=== PATIENT | male | born 1965 | race Caucasian/White ===

== ENCOUNTER 2017-07-07 00:34 | Emergency (ER) | payer OTHER ==
[~2017-07-07] VITALS: Ht 175.3 cm; Wt 76.2 kg
[~2017-07-07 00:34] MED LIST: ALBU1AER9 INH; CITA20TA9 PO; CMBIN INH; DIVA500T3 PO; IBUP600T44 PO; MIRT15TA PO; PRAV40TA2 PO; PRS5 PO; TAMS0.4C38 PO
[2017-07-07 00:52] VITALS: BP 108/87; TEMP 36.8; O2SAT 99; Ht 175.3 cm; Wt 76.2 kg
[2017-07-07 00:56] VITALS: PULSE 111
[2017-07-07] MEDS ORDERED: ALBU18002 INH (00:56)
[2017-07-07] MEDS ORDERED: FLUO20CA35 PO (00:56)
[2017-07-07] MEDS ORDERED: SODIUM CHLORIDE 0.9% 500ML 500 ML IV STA (01:21)
[2017-07-07] MEDS ORDERED: ONDANSETRON INJ 2 MG/ML 2 ML VIAL IV STA (01:21)
--- NOTE | 2017-07-07 01:35 | EMERGENCY ROOM VISIT NOTE ---
History Report prepared by Junior: Greg Chao Under the Supervision of: Dr. Francie Quiñonez M.D. First contact with patient: 01:16 Chief Complaint: CHEST PAIN Stated Complaint: CHEST PAIN/SHORT OF BREATH Nursing Triage Summary: pt was being arrested, developed chest pain, nausea vomiting. pt states hes been having on/off chest pain x 2 weeks History of Present Illness The patient is a 51 year old male who presents to the Emergency Room with complaints of on and off chest pain for the past 2 weeks. The patient states that he was drinking alcohol tonight, though this did not make it worse, and he states that he drinks to get rid of the pain. He notes that the pain does not come while doing anything particular. He notes that the pain is sometimes worse with deep inspiration and exertion, and he gets short of breath with exertion. He denies any heart history, though he has a family history of heart disease and cancer. He notes that he smokes, and he states that he does not have diabetes. He notes that he used his inhaler tonight, and he has had this for a couple of years now. The patient states that he has never had a stress test done. He denies any recent long trips. The patient reports that he has been vomiting due to the pain. Source of History: patient Onset: 2 weeks Position: chest Timing: other (on and off) Modifying Factors (Worsening): exertion, other (deep inspiration) Associated Symptoms: + SOB, + vomiting Review of Systems See HPI for pertinent positives & negatives. A total of 10 systems reviewed and were otherwise negative. 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 (5) Microscopic hematuria (6) TOBACCO USE DISORDER Social History Smoking Status: Current Every Day Smoker Alcohol Use: none Drug Use: none Marital Status: Occupation Status: unemployed Current/Historical Medications Scheduled Fluoxetine (Prozac), 30 MG PO DAILY Scheduled PRN Albuterol Sulfate (Proair Respiclick), 2 PUFFS INH Q4H PRN for Shortness of Breath Allergies Coded Allergies: No Known Allergies (Unverified , 07/07/17) Physical Exam Vital Signs Date Time Temp Pulse Resp B/P (MAP) Pulse Ox O2 Delivery O2 Flow Rate FiO2 07/07/17 00:56 111 07/07/17 00:52 99 Room Air 07/07/17 00:52 36.8 115 22 108/87 99 Room Air Physical Exam Vital signs reviewed. General: Well-appearing male, retching into a bag. No emesis. Smells of alcohol. HEENT: No scleral icterus, PERRLA, neck supple. Atraumatic. Cardiovascular: Regular rate and rhythm, no extra sounds. Pulmonary: Clear to auscultation bilaterally, normal work of breathing. Abdomen: Soft, nontender, nondistended, positive bowel sounds. Musculoskeletal: Atraumatic, no peripheral edema. Neurologic: Patient awake alert and oriented x 3, full strength in all 4 extremities. Cranial nerves 2 through 12 grossly intact. Skin: Warm, dry, no rash Medical Decision & Procedures ER Provider Diagnostic Interpretation: X-ray results as stated below per interpretation by me: Chest X-ray No focal lung consolidation. No failure. Laboratory Results 07/07/17 00:56 Red Blood Count 4.91, Mean Corpuscular Volume 87.4, Mean Corpuscular Hemoglobin 31.2, Mean Corpuscular Hemoglobin Concent 35.7, Mean Platelet Volume 9.4, Neutrophils (%) (Auto) 52.7, Lymphocytes (%) (Auto) 37.1, Monocytes (%) (Auto) 7.4, Eosinophils (%) (Auto) 1.8, Basophils (%) (Auto) 0.5, Neutrophils # (Auto) 6.95, Lymphocytes # (Auto) 4.90, Monocytes # (Auto) 0.98, Eosinophils # (Auto) 0.24, Basophils # (Auto) 0.07 07/07/17 00:56 Test 07/07/17 00:56 07/07/17 01:26 White Blood Count 13.20 K/uL (4.8-10.8) Red Blood Count 4.91 M/uL (4.7-6.1) Hemoglobin 15.3 g/dL (14.0-18.0) Hematocrit 42.9 % (42-52) Mean Corpuscular Volume 87.4 fL (80-100) Mean Corpuscular Hemoglobin 31.2 pg (25-34) Mean Corpuscular Hemoglobin Concent 35.7 g/dl (32-36) Platelet Count 374 K/uL (130-400) Mean Platelet Volume 9.4 fL (7.4-10.4) Neutrophils (%) (Auto) 52.7 % Lymphocytes (%) (Auto) 37.1 % Monocytes (%) (Auto) 7.4 % Eosinophils (%) (Auto) 1.8 % Basophils (%) (Auto) 0.5 % Neutrophils # (Auto) 6.95 K/uL (1.4-6.5) Lymphocytes # (Auto) 4.90 K/uL (1.2-3.4) Monocytes # (Auto) 0.98 K/uL (0.11-0.59) Eosinophils # (Auto) 0.24 K/uL (0-0.5) Basophils # (Auto) 0.07 K/uL (0-0.2) RDW Standard Deviation 42.8 fL (36.4-46.3) RDW Coefficient of Variation 13.5 % (11.5-14.5) Immature Granulocyte % (Auto) 0.5 % Immature Granulocyte # (Auto) 0.06 K/uL (0.00-0.02) Anion Gap 12.0 mmol/L (3-11) Est Creatinine Clear Calc Drug Dose 102.8 ml/min Estimated GFR () 117.2 Estimated GFR (Non- 101.1 BUN/Creatinine Ratio 19.3 (10-20) Calcium Level 9.1 mg/dl (8.5-10.1) Total Bilirubin 0.2 mg/dl (0.2-1) Direct Bilirubin mg/dl (0-0.2) Aspartate Amino Transf (AST/SGOT) 15 U/L (15-37) Alanine Aminotransferase (ALT/SGPT) 27 U/L (12-78) Alkaline Phosphatase 76 U/L (45-117) Total Creatine Kinase 188 U/L (39-308) Creatine Kinase MB 2.1 ng/ml (0.5-3.6) Creatine Kinase MB Ratio 1.1 (0-3.0) Total Protein 7.5 gm/dl (6.4-8.2) Albumin 3.7 gm/dl (3.4-5.0) Lipase 238 U/L (73-393) Chemistry Specimen Hemolysis Ethyl Alcohol mg/dL 132.4 mg/dl (0-3) Bedside Troponin I < 0.030 ng/ml (0-0.045) Laboratory results per my review. Medications Administered Medications (Trade) Dose Ordered Sig/Osiel Route Start Time Stop Time Status Last Admin Dose Admin Ondansetron HCl (Zofran Inj) 4 mg NOW STAT IV 07/07/17 01:21 07/07/17 01:23 DC 07/07/17 01:36 4 MG Sodium Chloride 500 ml @ 999 mls/hr Q31M STAT IV 07/07/17 01:21 07/07/17 01:51 DC 07/07/17 01:36 999 MLS/HR ECG Indication: chest pain Rate (beats per minute): 114 Rhythm: sinus tachycardia Findings: T-wave inversion (lateral), no ectopy, other (Short ME interval. Poor quality basleine for interpretation. No ST elevation) Change: Patient's electrocardiogram interpreted by me. ED Course 0116: Past medical records reviewed. The patient was evaluated in room A6. A complete history and physical examination was performed. 0121: Sodium Chloride 500 ml @ 999 mls/hr IV, Zofran 4mg IV 240: The patient insists on going home against medical advice, so he will be discharged home. Medical Decision Differential diagnosis Acute coronary syndrome, pulmonary embolus, aortic dissection, musculoskeletal pain, pneumonia, pleural effusion, pneumothorax This patient was evaluated and appeared to be in no significant distress. IV access was obtained and laboratory work was drawn. The patient was placed on the cafeteria monitor with normal sinus rhythm. EKG reveals a sinus tachycardia with diffuse T-wave inversions with no ST elevation. Chest x-ray is clear. Patient was hydrated with normal saline solution given IV Zofran for his nausea. He is found to be intoxicated. Patient had significant resolution of his symptoms. I do not suspect an acute cardiac etiology. The patient became upset and wanted to leave as soon as possible. He apparently has several warrants out for his arrest and was pulled over for driving under the influence this evening. He attempted to elope from the emergency department however the police apprehended him. Medication Reconcilliation Current Medication List: was personally reviewed by me Blood Pressure Screening Patient's blood pressure: Normal blood pressure Impression Primary Impression: Substernal chest pain Additional Impression: Alcohol intoxication Scribe Attestation The scribe's documentation has been prepared under my direction and personally reviewed by me in its entirety. I confirm that the note above accurately reflects all work, treatment, procedures, and medical decision making performed by me. Departure Information Dispostion Against Medical Advice Referrals No Doctor, Assigned (PCP) Forms Call Back Authorization, HOME CARE DOCUMENTATION FORM, IMPORTANT VISIT INFORMATION Patient Instructions My [facility] Additional Instructions Diagnosis: Chest pain, alcohol intoxication Please follow-up with your physician as soon as possible. You have left the emergency department AGAINST MEDICAL ADVICE. Return to the emergency department for worsening of symptoms or any medical concerns. Problem Qualifiers
[2017-07-07 01:42] LABS: BASO % 0.5 %; BASO ABS # 0.07 K/uL (0-0.2); EOS % 1.8 %; EOS ABS # 0.24 K/uL (0-0.5); HEMATOCRIT 42.9 % (42-52); HEMOGLOBIN 15.3 g/dL (14.0-18.0); IG# 0.06 K/uL (0.00-0.02); LYMPH % 37.1 %; MEAN CELL VOLUME 87.4 fL (80-100); MEAN CORPUSCULAR HEMOGLOBIN 31.2 pg (25-34); MEAN CORPUSCULAR HGB CONC 35.7 g/dl (32-36); MEAN PLATELET VOLUME 9.4 fL (7.4-10.4); MONO % 7.4 %; MONO ABS # 0.98 K/uL (0.11-0.59); NEUT % 52.7 %; NEUT ABS # 6.95 K/uL (1.4-6.5); PLATELET COUNT 374 K/uL (130-400); RED CELL DISTRIBUTION WIDTH CV 13.5 % (11.5-14.5); RED CELL DISTRIBUTION WIDTH SD 42.8 fL (36.4-46.3)
[2017-07-07 02:05] LABS: ALBUMIN 3.7 gm/dl (3.4-5.0); ALT/SGPT 27 U/L (12-78); AST/SGOT 15 U/L (15-37); BLOOD UREA NITROGEN 17 mg/dl (7-18); CALCIUM 9.1 mg/dl (8.5-10.1); CARBON DIOXIDE 17 mmol/L (21-32); CREATININE 0.86 mg/dl (0.60-1.40); GLUCOSE 146 mg/dl (70-99); LIPASE 238 U/L (73-393); POTASSIUM 3.6 mmol/L (3.5-5.1); SODIUM 139 mmol/L (136-145)
[2017-07-07 02:08] LABS: ALKALINE PHOSPHATASE 76 U/L (45-117); CKMB 2.1 ng/ml (0.5-3.6); TOTAL PROTEIN 7.5 gm/dl (6.4-8.2)
--- NOTE | 2017-07-07 06:48 | DIAGNOSTIC IMAGING REPORT ---
CHEST ONE VIEW PORTABLE CLINICAL HISTORY: Atypical chest pain COMPARISON STUDY: 08/13/2012 FINDINGS: The cardiac and mediastinal contours are normal. There is no evidence of focal pulmonary consolidation. There is no evidence of failure. No pleural effusions are visualized.[ IMPRESSION: No active disease in the chest. Electronically signed by: Kyree Lopez M.D. 07/07/2017 6:47 AM Dictated Date/Time: 07/07/2017 6:47 AM
== END 2017-07-07 03:27 | disposition left against medical advice (07) ==
LOC: EDBD 00:34 → C.EDA 00:36
DX: R07.2 Precordial pain (principal); F10.920 Alcohol use, unspecified with intoxication, uncomplicated; Z80.9 Family history of malignant neoplasm, unspecified; F17.210 Nicotine dependence, cigarettes, uncomplicated; J45.909 Unspecified asthma, uncomplicated; F32.9 Major depressive disorder, single episode, unspecified; E78.5 Hyperlipidemia, unspecified; N40.0 Benign prostatic hyperplasia without lower urinary tract symptoms; Z79.899 Other long term (current) drug therapy

== ENCOUNTER 2023-02-07 14:08 | Observation (INO) ==
[2023-02-07 14:53] LABS: Partial Thromboplastin Ratio 0.9; Partial Thromboplastin Time 25.5 Seconds (21.0-31.0); Prothrombin Time 10.5 Seconds (9.0-12.0)
--- NOTE | 2023-02-07 15:02 | Emergency Department Note ---
Impression & Plan Arm weakness ADMIT ED Provider Note HPI: The patient is a 57-year-old male who presents the emergency department with a chief complaint of left arm numbness and weakness that has been occurring intermittently for about the past 2 weeks. Patient states that at times he is getting some numbness and weakness in his left upper extremity. Patient states he had a similar episode to this today at about 1 PM, he states he was walking up the stairs and began to feel some numbness in his left arm and then had some difficulty moving his left arm to the point where he had to use his right arm to lift it. Patient states this lasted about 1 minute and then spontaneously r esolved. On arrival here to the ED the patient states his symptoms are improved, he still does have some mild tingling however he does not have any motor deficits. Patient states he has had a constant "aching" throughout his entire left arm for the past 2 weeks as well. On arrival here to the ED the patient is hypertensive at 162/93, he is otherwise hemodynamically stable and in no acute distress. ROS: - Per HPI Differential Diagnosis: Transient ischemic attack, acute ischemic stroke, degenerative changes of the cervical spine with radiculopathy, muscle spasms, acute coronary syndrome, amongst other potential pathologies. *Outpatient medications and allergy history reviewed. *Pertinent external medical records reviewed. PE: General: Alert HEENT: Normocephalic, trachea midline Eyes: Extraocular eye movement is intact, no scleral erythema Pulmonary: Clear to auscultation bilaterally, no wheezing Cardio: Regular rate and rhythm GI: Abdomen is soft to palpation : No suprapubic tenderness MSK: No evidence of trauma or malformation of the extremities, no edema Skin: No evidence of rash Neuro: Alert, no focal deficits, there is no drift of the upper extremities or lower extremities with testing against gravity, no ataxia on [id number] testing bilaterally, symmetrical facial movements are appreciated Psychiatric: Cooperative monitor technician: (As interpreted by myself): - An order was placed for continuous cardiac monitoring - Patient was noted to be in sinus rhythm with a rate of 70 EKG: (As interpreted by myself): Rate: 86 Rhythm: Normal sinus rhythm Intervals: Within normal limits ST changes: No ST elevation Time: 1424 NIH STROKE SCALE: 1A: Level of consciousness Alert; keenly responsive 0 1B: Ask month and age Both questions right 0 1C: 'Blink eyes' & 'squeeze hands' Performs both tasks 0 2: Horizontal extraocular movements Normal 0 3: Visual rae No visual loss 0 4: Facial palsy Normal symmetry 0 5A: Left arm motor drift No drift for 10 seconds 0 5B: Right arm motor drift No drift for 10 seconds 0 6A: Left leg motor drift No drift for 5 seconds 0 6B: Right leg motor drift No drift for 5 seconds 0 7: Limb Ataxia No ataxia 0 8: Sensation Normal; no sensory loss 0 9: Language/aphasia Normal; no aphasia 0 10: Dysarthria Normal 0 11: Extinction/inattention No abnormality 0 TOTAL NIH SCORE = 0 Interventions provided in ED: -Aspirin, IV fluid bolus Medical Decision Making: Shortly after the patient arrived IV was established lab work ordered, patient was maintained on quality assurance monitor. Patient is not considered a candidate for tPA therapy despite his left arm weakness as his symptoms are completely resolved and his weakness was transient. NIH score obtained shortly after arrival is 0. Lab work shows a leukocytosis of 17.7 which appears chronic in comparison to patient's recent lab work. Hemoglobin is stable at 15.7, platelet count is slightly high at 409, CMP does not show any critical findings, no evidence of any acute kidney injury, troponin is negative, EKG reviewed by myself shows evidence of sinus rhythm without any acute ischemic changes or evidence of arrhythmia. CT imaging of the head without contrast as well as CT angiography of the head and neck does not show any evidence of large vessel occlusion, there is evidence of atherosclerotic disease including occlusion of the left vertebral artery. On reassessment the patient remains well-appearing and is resting comfortably in bed. He was given an aspirin here in the ED. He does have risk factors for stroke as well as known atherosclerotic disease as visualized on CT imaging. I feel he should be admitted to the hospital for TIA work-up, Including MRI imaging of the brain. I discussed this with the patient and he is in agreement, case was then discussed with the on-call midlevel provider [facility], and the patient was admitted to the hospitalist service for further management. Consultants: Hospitalist service, Dr. Morales Disposition discussion held by myself with: Patient Diagnosis: 1. Left upper extremity weakness, transient 2. Left upper extremity paresthesias, transient 3. Leukocytosis, chronic 4. History of tobacco use Disposition: Admission Louie Coleman DO Emergency Medicine Past Med/Surg History Medical History (Updated 02/07/23 @ 17:00 by Louie Coleman DO) Abnormal CT scan, chest Asthma Chronic coughing GERD (gastroesophageal reflux disease) Nephrolithiasis Tobacco abuse Surgical History History of hernia surgery Family History (Updated 09/09/21 @ 13:48 by NIKOLE Montejo) Other Allergies Asthma Cancer Diabetes FHx: cancer FHx: heart disease Heart disease Denies family history of Lung disease Social History (Updated 09/09/21 @ 13:47 by NIKOLE Montejo) Smoking Status: Never smoker Tobacco Type: Cigarettes and Smokeless Tobacco (Dip or Chew) Age Started Using Tobacco: 13; packs per day: 1; Hx Alcohol Use: No Hx Substance Use: No Preferred Language: Irish Visual Impairment: No Limitations Hearing Ability: Normal current occupational status: employed Feels Safe at Home: Yes Allergies Allergies Allergy/AdvReac Type Severity Reaction Status Date / Time Mosquito Bite Allergy Mild Rash Uncoded 02/07/23 16:56 around site of bite Home Meds Home Medications Medication Instructions Recorded Confirmed albuterol sulfate 90 mcg/actuation 2 inha inhalation QID PRN 10/22/20 02/07/23 aerosol inhaler Wheezing/asthma acetaminophen 500 mg tablet 1,000 mg PO Q6H PRN Pain 03/03/21 02/07/23 (Tylenol Extra Strength) diphenhydramine HCl 25 mg tablet 75 mg PO AMHS 03/03/21 02/07/23 (Benadryl Allergy) calcium carbonate 200 mg calcium 400 mg PO BID PRN Acid Reflux 02/07/23 02/07/23 (500 mg) chewable tablet (Tums) diphenhydramine HCl 25 mg tablet 50 mg PO .Q AFTERNOON 02/07/23 02/07/23 (Benadryl Allergy) umeclidinium 62.5 mcg-vilanterol 1 ea inhalation QAM 02/07/23 02/07/23 25 mcg/actuation powdr for inhalation (Anoro Ellipta) Results & Data (ED) Vital Signs Vital Signs - 24 hr 02/07/23 14:12 02/07/23 15:18 02/07/23 15:18 Temperature 37.1 C Temperature Source Temporal Artery Scan Pulse Rate 92 H Pulse Rate [Apical] 80 Pulse Rhythm [Apical] Regular Respiratory Rate 18 18 Respiratory Effort / Characteristics Non-Labored Non-Labored Spontaneous Respiratory Depth Normal Normal Respiratory Pattern Regular Blood Pressure 162/93 H Blood Pressure [Right Arm] 138/95 Blood Pressure Mean 116 Blood Pressure Mean [Right Arm] 109 Blood Pressure Position [Right Arm] Lying Pulse Oximetry 97 96 96 Oxygen Delivery Method Room Air Room Air Room Air Sepsis Recent Fever Within 48 Hours No Sepsis New/Unexplained Change in Mental Status No Sepsis Action Taken by Nursing No Action Required 02/07/23 15:19 Temperature Temperature Source Pulse Rate 77 Pulse Rate [Apical] Pulse Rhythm [Apical] Respiratory Rate Respiratory Effort / Characteristics Respiratory Depth Respiratory Pattern Blood Pressure Blood Pressure [Right Arm] Blood Pressure Mean Blood Pressure Mean [Right Arm] Blood Pressure Position [Right Arm] Pulse Oximetry Oxygen Delivery Method Sepsis Recent Fever Within 48 Hours Sepsis New/Unexplained Change in Mental Status Sepsis Action Taken by Nursing Laboratory Data 02/07/23 14:20 02/07/23 14:20 Lab Results 02/07/23 02/07/23 02/07/23 Range/Units 14:20 14:20 14:20 WBC 17.76 H (4.8-10.8) K/ul RBC 5.14 (4.70-6.10) M/uL Hgb 15.7 (14.0-18.0) g/dl Hct 44.2 (42.0-52.0) % MCV 86.0 (80.0-100.0) fL MCH 30.5 (25.0-34.0) pg MCHC 35.5 (32.0-36.0) g/dL RDW Std Deviation 41.0 (36.4-46.3) fL RDW Coeff of Yazmin 13.1 (11.5-14.5) % Plt Count 409 H (130-400) K/uL MPV 8.9 L (9.4-12.4) fL PT 10.5 (9.0-12.0) Seconds INR 1.0 (0.9-1.1) APTT 25.5 (21.0-31.0) Seconds PTT Ratio 0.9 Sodium 137 (136-145) mmol/L Potassium 3.7 (3.5-5.1) mmol/L Chloride 105 (98-107) mmol/L Carbon Dioxide 23 (21-32) mmol/L Anion Gap 9 (3-11) BUN 14 (6-23) mg/dl Creatinine 1.17 (0.6-1.4) mg/dl Est Cr Clr Drug Dosing 76.9 ml/min Est GFR ( Amer) 80.3 ml/min Est GFR (Non-Af Amer) 69.3 ml/min BUN/Creatinine Ratio 12.0 (10-20) Glucose 99 (70-99(Fasting)) mg/dl POC Glucose (70-99) mg/dl Calcium 10.6 H (8.6-10.3) mg/dl Magnesium 2.0 (1.7-2.4) mg/dl Total Bilirubin 0.7 (0.2-1.0) mg/dl AST 15 (13-39) U/L ALT 22 (7-52) U/L Alkaline Phosphatase 70 (34-104) U/L Troponin I High Sens (0-20) pg/ml Total Protein 7.5 (6.0-8.3) gm/dl Albumin 4.7 (3.4-5.0) gm/dl Globulin 2.8 (2.5-4.0) gm/dl Albumin/Globulin Ratio 1.7 (0.9-2) 02/07/23 02/07/23 Range/Units 15:13 16:03 WBC (4.8-10.8) K/ul RBC (4.70-6.10) M/uL Hgb (14.0-18.0) g/dl Hct (42.0-52.0) % MCV (80.0-100.0) fL MCH (25.0-34.0) pg MCHC (32.0-36.0) g/dL RDW Std Deviation (36.4-46.3) fL RDW Coeff of Yazmin (11.5-14.5) % Plt Count (130-400) K/uL MPV (9.4-12.4) fL PT (9.0-12.0) Seconds INR (0.9-1.1) APTT (21.0-31.0) Seconds PTT Ratio Sodium (136-145) mmol/L Potassium (3.5-5.1) mmol/L Chloride (98-107) mmol/L Carbon Dioxide (21-32) mmol/L Anion Gap (3-11) BUN (6-23) mg/dl Creatinine (0.6-1.4) mg/dl Est Cr Clr Drug Dosing ml/min Est GFR ( Amer) ml/min Est GFR (Non-Af Amer) ml/min BUN/Creatinine Ratio (10-20) Glucose (70-99(Fasting)) mg/dl POC Glucose 92 (70-99) mg/dl Calcium (8.6-10.3) mg/dl Magnesium (1.7-2.4) mg/dl Total Bilirubin (0.2-1.0) mg/dl AST (13-39) U/L ALT (7-52) U/L Alkaline Phosphatase (34-104) U/L Troponin I High Sens 6.4 (0-20) pg/ml Total Protein (6.0-8.3) gm/dl Albumin (3.4-5.0) gm/dl Globulin (2.5-4.0) gm/dl Albumin/Globulin Ratio (0.9-2) Administered Medications Discontinued Medications Aspirin (Aspirin Chew 324 Mg) 324 mg PO NOW STA Stop: 02/07/23 16:23 Last Admin: 02/07/23 16:31 Dose: 324 mg Documented By: DYLON Sodium Chloride (Nss 1000ml) 500 mls @ 999 mls/hr IV .Q31M ONE Stop: 02/07/23 16:52 Last Admin: 02/07/23 16:33 Dose: 999 mls/hr Documented By: DYLON Ioversol (Ioversol 350 Mg 125ml Prefilled Syringe) 117 ml IV ONCE ONE Stop: 02/07/23 15:45 Last Admin: 02/07/23 15:44 Dose: 117 ml Documented By: ARLETH Imaging Data Radiologist's Impression: Chest X-Ray 02/07/23 14:17 XR chest 1V not portable HISTORY: Stroke symptoms. COMPARISON: Chest 10/22/2020. FINDINGS: The lungs are clear. Cardiac silhouette is normal in size. No pleural effusions. No pneumothorax. IMPRESSION: No acute process. ACT 112: Negative or not required by law. Electronically signed by: Konrad Hernandez M.D. 02/07/2023 3:11 PM Head CTA 02/07/23 14:57 CT angio head wo/w, CT angio neck with con CLINICAL HISTORY: L arm weakness TECHNIQUE: Contiguous axial CT images of the head were acquired from the base of the skull to the vertex without intravenous contrast administration. CT angiography of the head and neck was performed following intravenous administration of iodinated contrast. Coronal and sagittal MIPS were obtained from the axial data set and were submitted for review. Automated dose lowering techniques and/or adjustment according to patient size were utilized for this examination. All measurements were calculated based on NASCET criteria. CT DOSE: 1005.31 mGy.cm Comparison: Comparison is made to CT head 01/02/2019 FINDINGS: CT head: There is no acute intracranial hemorrhage or evidence of acute territorial infarction. No shift of the midline structures, mass effect, or extra-axial abnormalities are shown. Small thyroid nodules are seen which do not require follow-up by ACR criteria. CTA Neck: A 3 vessel aortic arch is shown. There is no significant atherosclerotic plaque in the aortic arch or the origins of the innominate, left common carotid, and left subclavian arteries. There is mild calcified atherosclerotic plaque at the bifurcation of the bilateral common carotid arteries without hemodynamically significant flow stenosis. There is no dissection present. 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 The right vertebral artery is dominant. CTA Head: The anterior and posterior cerebral circulations are patent. origin of the left posterior cerebral artery is seen. IMPRESSION: 1. No acute intracranial hemorrhage, evidence of acute territorial infarction, or other acute intracranial disease process. 2. 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 Atherosclerotic disease is in the bilateral carotid bulbs with nonhemodynamically significant stenosis. 3. No occlusion, hemodynamically significant stenosis, aneurysm, dissection, or arteriovenous malformation in the major intracranial arteries. Assessment of stenosis of the internal carotid arteries is based on NASCET criteria. ACT 112: Negative or not required by law. Electronically signed by: Williams Marin M.D. 02/07/2023 4:16 PM Neck CTA 02/07/23 14:58 CT angio head wo/w, CT angio neck with con CLINICAL HISTORY: L arm weakness TECHNIQUE: Contiguous axial CT images of the head were acquired from the base of the skull to the vertex without intravenous contrast administration. CT angiography of the head and neck was performed following intravenous administration of iodinated contrast. Coronal and sagittal MIPS were obtained from the axial data set and were submitted for review. Automated dose lowering techniques and/or adjustment according to patient size were utilized for this examination. All measurements were calculated based on NASCET criteria. CT DOSE: 1005.31 mGy.cm Comparison: Comparison is made to CT head 01/02/2019 FINDINGS: CT head: There is no acute intracranial hemorrhage or evidence of acute territorial infarction. No shift of the midline structures, mass effect, or extra-axial abnormalities are shown. Small thyroid nodules are seen which do not require follow-up by ACR criteria. CTA Neck: A 3 vessel aortic arch is shown. There is no significant ather osclerotic plaque in the aortic arch or the origins of the innominate, left common carotid, and left subclavian arteries. There is mild calcified atherosclerotic plaque at the bifurcation of the bilateral common carotid arteries without hemodynamically significant flow stenosis. There is no dissect ion present. 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 The right vertebral artery is dominant. CTA Head: The anterior and posterior cerebral circulations are patent. origin of the left posterior cerebral artery is seen. IMPRESSION: 1. No acute intracranial hemorrhage, evidence of acute territorial infarction, or other acute intracranial disease process. 2. 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 Atherosclerotic disease is in the bilateral carotid bulbs with nonhemodynamically significant stenosis. 3. No occlusion, hemodynamically significant stenosis, aneurysm, dissection, or arteriovenous malformation in the major intracranial arteries. Assessment of stenosis of the internal carotid arteries is based on NASCET criteria. ACT 112: Negative or not required by law. Electronically signed by: Williams Marin M.D. 02/07/2023 4:16 PM Discharge Plan Visit Data Chief Complaint: Neuro Symptoms/Deficit Stated Complaint: DOC REF,NUMB L ARM, ED Provider: Louie Coleman Discharge Problem: Arm weakness Forms Stand Alone Forms: My [facility] Prescriptions Prescriptions: No Action albuterol sulfate 90 mcg/actuation HFA aerosol inhaler 2 inha INH QID PRN (Reason: Wheezing/asthma) diphenhydramine HCl [Benadryl Allergy] 25 mg Tablet 50 mg PO .Q AFTERNOON calcium carbonate [Tums] 200 mg calcium (500 mg) Tablet,Chewable 400 mg PO BID PRN (Reason: Acid Reflux) Anoro Ellipta 62.5-25 mcg/actuation blister with device 1 ea INHALATION QAM acetaminophen [Tylenol Extra Strength] 500 mg Tablet 1,000 mg PO Q6H PRN (Reason: Pain) diphenhydramine HCl [Benadryl Allergy] 25 mg Tablet 75 mg PO AMHS Referrals Referrals: PCP,NO [Physician] -
[2023-02-07 15:08] LABS: Albumin Globulin Ratio 1.7 (0.9-2); Albumin Level 4.7 gm/dl (3.4-5.0); Bilirubin,Total 0.7 mg/dl (0.2-1.0); Calcium 10.6 mg/dl (8.6-10.3); Creatinine Clr Calc Pharmacy 76.9 ml/min; Est GFR (African American) 80.3 ml/min; Est GFR (Non-African American) 69.3 ml/min; Globulin 2.8 gm/dl (2.5-4.0); Potassium 3.7 mmol/L (3.5-5.1); Total Protein 7.5 gm/dl (6.0-8.3)
[2023-02-07 15:09] LABS: Hematocrit (blood only) 44.2 % (42.0-52.0); Hemoglobin 15.7 g/dl (14.0-18.0); Mean Corpuscular Hemoglobin 30.5 pg (25.0-34.0); Mean Corpuscular Hgb Conc 35.5 g/dL (32.0-36.0); Mean Platelet Volume 8.9 fL (9.4-12.4); Platelet Count 409 K/uL (130-400); RDW Coefficient of Variation 13.1 % (11.5-14.5); Red Blood Count 5.14 M/uL (4.70-6.10); White Blood Count 17.76 K/ul (4.8-10.8)
--- NOTE | 2023-02-07 15:13 | XRay Report ---
XR chest 1V not portable HISTORY: Stroke symptoms. COMPARISON: Chest 10/22/2020. FINDINGS: The lungs are clear. Cardiac silhouette is normal in size. No pleural effusions. No pneumot horax. IMPRESSION: No acute process. ACT 112: Negative or not required by law. Electronically signed by: Konrad Hernandez M.D. 02/07/2023 3:11 PM
[2023-02-07] MEDS ORDERED: IOVERSOL 350 MG 125mL Prefilled Syringe IV ONE (15:44)
--- NOTE | 2023-02-07 16:18 | CT Scan Report ---
CT angio head wo/w, CT angio neck with con CLINICAL HISTORY: L arm weakness TECHNIQUE: Contiguous axial CT images of the head were acquired from the base of the skull to the aksah ami without intravenous contrast administration. CT angiography of the head and neck was performed f ollowing intravenous administration of iodinated contrast. Coronal and sagittal MIPS were obtained fr om the axial data set and were submitted for review. Automated dose lowering techniques and/or adjus tment according to patient size were utilized for this examination. All measurements were calculated based on NASCET criteria. CT DOSE: 1005.31 mGy.cm Comparison: Comparison is made to CT head 01/02/2019 FINDINGS: CT head: There is no acute intracranial hemorrhage or evidence of acute territorial infarction. No sh ift of the midline structures, mass effect, or extra-axial abnormalities are shown. Small thyroid nodules are seen which do not require follow-up by ACR criteria. CTA Neck: A 3 vessel aortic arch is shown. There is no significant atherosclerotic plaque in the aor tic arch or the origins of the innominate, left common carotid, and left subclavian arteries. There is mild calcified atherosclerotic plaque at the bifurcation of the bilateral common carotid arteries without hemodynamically significant flow stenosis. There is no dissection present. Multiple foci of t otal occlusion of the left vertebral artery are seen most prominently near its origin. The right vert ebral artery is dominant. CTA Head: The anterior and posterior cerebral circulations are patent. origin of the left post erior cerebral artery is seen. IMPRESSION: 1. No acute intracranial hemorrhage, evidence of acute territorial infarction, or other acute intrac ranial disease process. 2. 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 Atherosclerotic disease is i n the bilateral carotid bulbs with nonhemodynamically significant stenosis. 3. No occlusion, hemodynamically significant stenosis, aneurysm, dissection, or arteriovenous malfor mation in the major intracranial arteries. Assessment of stenosis of the internal carotid arteries is based on NASCET criteria. ACT 112: Negative or not required by law. Electronically signed by: Williams Marin M.D. 02/07/2023 4:16 PM
[2023-02-07] MEDS ORDERED: ASPIRIN CHEW 324 MG PO STA (16:22)
[2023-02-07] MEDS ORDERED: SODIUM CHLORIDE 0.9% 500 ML IV ONE (16:22)
--- NOTE | 2023-02-07 16:59 | History & Physical Report ---
Date of Service February 07, 2023 Assessment & Plan (1) Arm weakness: Plan: This is a 57 y/o male with a history of asthma/COPD, chronic back pain with sciatica, dyslipidemia, and tobacco use who presented to the ED today with two weeks of intermittent numbness and tingling in the left arm and an episode of weakness in the arm today.These episodes of symptoms have been progressing in frequency and today in severity. 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 Continues to have intermittent numbness in the LUE since being in the ED but no further weakness. Pt with multiple risk factors for CVA so referred for admission. Concern that these LUE symptoms are TIA. - Observe in PCU with neuro checks, daily stroke scale - start ASA, increase statin - Check MRI brain - ECHO for evaluation - Consult neurology for additional recommendations - If work-up listed negative, consider evaluation for cervical radiculopathy, potentially as outpatient - Lipid panel and A1c in the AM - Encouraged to stop smoking completely (2) Leukocytosis: Plan: Ongoing issue - associated mild thrombocytosis. Pt was referred to hem/onc for additional evaluation outpatient but reports that he was unable to make appointment because of transportation issues. Will check peripheral smear. Consider inpt heme/onc eval vs. outpatient referral depending on results. (3) Tobacco abuse: (4) Dyslipidemia: (5) Asthma: Plan: Continue inhalers Plan Continue other home medications as appropriate. Pt seen and reviewed with collaborating physician, Dr. Morales. Plan of care discussed and as outlined above. Code Status: Full code DVT Prophylaxis: Lovenox Gilmar Martinez PA-C History of Present Illness Chief Complaint: intermittent left arm numbness and tingling x 2 weeks Primary Care Provider: Lyric Mcarthur PA-C This is a 57 y/o male with a history of asthma/COPD, chronic back pain with sciatica, dyslipidemia, and tobacco use who presented to the ED today with two weeks of intermittent numbness and tingling in the left arm and an episode of weakness in the arm today. Pt reports that two weeks ago, he started to have episodes during which his entire left arm would go numb. These last no more than a minute then resolve without specific intervention. They have been gradually increasing in frequency but not lasting longer. This afternoon, he started with a similar sensation but this time his entire left arm went weak and he was unable to move it reporting that he had to lift it with his other arm. Again, this lasted about a minute before improving without specific intervention. He denies prior similar symptoms in his UEs before two weeks ago. No inciting event or trauma. Pt is right-hand dominant. He works for a [employer] so is frequently lifting and using his arms. He does have a history of chronic back pain with sciatica, which is what he initially attributed his symptoms to. He is no longer taking the diclofenac and gabapenti n previously prescribed to him as he didn't think they helped much. He has also noted new headaches almost daily for the last two weeks, which he attributed to stress. He had an episode of dizziness with floaters in his vision about ten days ago when he was at work that lasted a few minutes before resolving. He notes chronic issues with shortness of breath related to asthma/COPD - breathing is always worse during allergy season and when the weather is hot so he has been using his albuterol inhaler with relief. He has also noted occasional episodes of left chest pain that last a couple of minutes, did have this earlier today as well. Allergies Allergy/AdvReac Type Severity Reaction Status Date / Time Mosquito Bite Allergy Mild Rash Uncoded 02/07/23 16:56 around site of bite Home Medications Medication Instructions Recorded Confirmed Type albuterol sulfate 90 mcg/actuation 2 inha inhalation QID PRN 10/22/20 02/07/23 History aerosol inhaler Wheezing/asthma atorvastatin 20 mg tablet 20 mg PO DAILY 02/07/23 02/07/23 History diphenhydramine HCl 25 mg tablet 25 mg PO Q8H PRN Allergy Symptoms 02/07/23 02/07/23 History (Benadryl Allergy) umeclidinium 62.5 mcg-vilanterol 1 ea inhalation QAM 02/07/23 02/07/23 History 25 mcg/actuation powdr for inhalation (Anoro Ellipta) Past Med/Surg History Medical History (Updated 02/07/23 @ 19:19 by Sandy Martinez PA-C) Abnormal CT scan, chest Asthma Chronic coughing Dyslipidemia GERD (gastroesophageal reflux disease) Nephrolithiasis Sciatica Seasonal allergies Tobacco abuse Surgical History History of hernia surgery Family History (Updated 09/09/21 @ 13:48 by NIKOLE Montejo) Other Allergies Asthma Cancer Diabetes FHx: cancer FHx: heart disease Heart disease Denies family history of Lung disease Social History (Updated 02/07/23 @ 18:05 by Sandy Martinez PA-C) Smoking Status: Current every day smoker Tobacco Type: Cigarettes and Smokeless Tobacco (Dip or Chew) Age Started Using Tobacco: 13; packs per day: 1; Cigarettes Per Day: 8-10 cig/day (Previously smoked 1-2 pks/day); Hx Alcohol Use: No Hx Substance Use: No Preferred Language: Monegasque Visual Impairment: No Limitations Hearing Ability: Normal current occupational status: employed Feels Safe at Home: Yes Review of Systems Review of Systems: All systems reviewed & are unremarkable except as noted in HPI & below Constitutional: + sweats (ongoing night sweats x 2-3 years); no fever, no anorexia and no weight loss Eyes: no diplopia Ear, Nose, Mouth, Throat: no dysphagia Respiratory: as per Subjective / HPI and + cough Cardiovascular: as per Subjective / HPI; no syncope and no edema Gastrointestinal: + diarrhea/loose stools (yesterday but attributes to IBS); no nausea, no vomiting and no blood in stools Genitourinary: no dysuria or no hematuria Musculoskeletal: + back pain Integumentary: no yellowing of the skin Neurologic: + localized weakness, + numbness, + paresthesia and + headache(s); no confusion Physical Exam Constitutional: well developed and well nourished; no acute distress Eyes: PERRL, conjunctivae normal, anicteric sclerae ENMT: external ear and nose normal, oropharynx normal Neck: trachea midline Respiratory: no respiratory distress and no labored breathing Auscultation: lungs clear to auscultation bilaterally; no rales, no rhonchi and no wheezes Cardiovascular: Rate/Rhythm: regular rate and regular rhythm Vessels: posterior tibial pulses present and radial pulses present Extremities: no pedal edema Gastrointestinal (Abdomen): Inspection/Auscultation: normal bowel sounds; abdomen not distended Percussion/Palpation: abdomen soft; abdomen nontender Musculoskeletal: Head/Neck/Chest: normocephalic, head atraumatic and neck supple Skin: no jaundice Neurologic: moves all extremities; not confused Speech / Cognition: normal speech Motor/Sensory: no pronator drift Cranial Nerves: PERRL, normal facial strength, tongue midline, able to rotate head bilaterally and able to elevate shoulders bilaterally 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 otherwise strength in UE and LE equal and full bilaterally Psychiatric: A+Ox3, euthymic affect Results & Data Results & Data Vital Signs (Past 12 Hours) Vital Signs Temp Pulse Pulse Resp BP BP Pulse Ox 02/07/23 15:19 77 02/07/23 15:18 96 02/07/23 15:18 80 18 138/95 96 02/07/23 14:12 37.1 C 92 H 18 162/93 H 97 O2 Del Method 02/07/23 15:19 02/07/23 15:18 Room Air 02/07/23 15:18 Room Air 02/07/23 14:12 Room Air Laboratory Results Laboratory Results - last 24 hr 02/07/23 02/07/23 02/07/23 14:20 14:20 14:20 WBC 17.76 H RBC 5.14 Hgb 15.7 Hct 44.2 MCV 86.0 MCH 30.5 MCHC 35.5 RDW Std Deviation 41.0 RDW Coeff of Yazmin 13.1 Plt Count 409 H MPV 8.9 L PT 10.5 INR 1.0 APTT 25.5 PTT Ratio 0.9 Sodium 137 Potassium 3.7 Chloride 105 Carbon Dioxide 23 Anion Gap 9 BUN 14 Creatinine 1.17 Est Cr Clr Drug Dosing 76.9 Est GFR ( Amer) 80.3 Est GFR (Non-Af Amer) 69.3 BUN/Creatinine Ratio 12.0 Glucose 99 POC Glucose Calcium 10.6 H Magnesium 2.0 Total Bilirubin 0.7 AST 15 ALT 22 Alkaline Phosphatase 70 Troponin I High Sens Total Protein 7.5 Albumin 4.7 Globulin 2.8 Albumin/Globulin Ratio 1.7 02/07/23 02/07/23 15:13 16:03 WBC RBC Hgb Hct MCV MCH MCHC RDW Std Deviation RDW Coeff of Yazmin Plt Count MPV PT INR APTT PTT Ratio Sodium Potassium Chloride Carbon Dioxide Anion Gap BUN Creatinine Est Cr Clr Drug Dosing Est GFR ( Amer) Est GFR (Non-Af Amer) BUN/Creatinine Ratio Glucose POC Glucose 92 Calcium Magnesium Total Bilirubin AST ALT Alkaline Phosphatase Troponin I High Sens 6.4 Total Protein Albumin Globulin Albumin/Globulin Ratio Diagnostic Findings Chest X-Ray 02/07/23 14:17 XR chest 1V not portable HISTORY: Stroke symptoms. COMPARISON: Chest 10/22/2020. FINDINGS: The lungs are clear. Cardiac silhouette is normal in size. No pleural effusions. No pneumothorax. IMPRESSION: No acute process. ACT 112: Negative or not required by law. Electronically signed by: Konrad Hernandez M.D. 02/07/2023 3:11 PM Head CTA 02/07/23 14:57 CT angio head wo/w, CT angio neck with con CLINICAL HISTORY: L arm weakness TECHNIQUE: Contiguous axial CT images of the head were acquired from the base of the skull to the vertex without intravenous contrast administration. CT angiography of the head and neck was performed following intravenous administration of iodinated contrast. Coronal and sagittal MIPS were obtained from the axial data set and were submitted for review. Automated dose lowering techniques and/or adjustment according to patient size were utilized for this examination. All measurements were calculated based on NASCET criteria. CT DOSE: 1005.31 mGy.cm Comparison: Comparison is made to CT head 01/02/2019 FINDINGS: CT head: There is no acute intracranial hemorrhage or evidence of acute territorial infarction. No shift of the midline structures, mass effect, or extra-axial abnormalities are shown. Small thyroid nodules are seen which do not require follow-up by ACR criteria. CTA Neck: A 3 vessel aortic arch is shown. There is no significant atherosclerotic plaque in the aortic arch or the origins of the innominate, left common carotid, and left subclavian arteries. There is mild calcified atherosclerotic plaque at the bifurcation of the bilateral common carotid arteries without hemodynamically significant flow stenosis. There is no dissection present. 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 The right vertebral artery is dominant. CTA Head: The anterior and posterior cerebral circulations are patent. origin of the left posterior cerebral artery is seen. IMPRESSION: 1. No acute intracranial hemorrhage, evidence of acute territorial infarction, or other acute intracranial disease process. 2. 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 Atherosclerotic disease is in the bilateral carotid bulbs with nonhemodynamically significant stenosis. 3. No occlusion, hemodynamically significant stenosis, aneurysm, dissection, or arteriovenous malformation in the major intracranial arteries. Assessment of stenosis of the internal carotid arteries is based on NASCET criteria. ACT 112: Negative or not required by law. Electronically signed by: Williams Marin M.D. 02/07/2023 4:16 PM Neck CTA 02/07/23 14:58 CT angio head wo/w, CT angio neck with con CLINICAL HISTORY: L arm weakness TECHNIQUE: Contiguous axial CT images of the head were acquired from the base of the skull to the vertex without intravenous contrast administration. CT angiography of the head and neck was performed following intravenous administration of iodinated contrast. Coronal and sagittal MIPS were obtained from the axial data set and were submitted for review. Automated dose lowering techniques and/or adjustment according to patient size were utilized for this examination. All measurements were calculated based on NASCET criteria. CT DOSE: 1005.31 mGy.cm Comparison: Comparison is made to CT head 01/02/2019 FINDINGS: CT head: There is no acute intracranial hemorrhage or evidence of acute territorial infarction. No shift of the midline structures, mass effect, or extra-axial abnormalities are shown. Small thyroid nodules are seen which do not require follow-up by ACR criteria. CTA Neck: A 3 vessel aortic arch is shown. There is no significant atherosclerotic plaque in the aortic arch or the origins of the innominate, left common carotid, and left subclavian arteries. There is mild calcified atherosclerotic plaque at the bifurcation of the bilateral common carotid arteries without hemodynamically significant flow stenosis. There is no dissection present. 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 The right vertebral artery is dominant. CTA Head: The anterior and posterior cerebral circulations are patent. origin of the left posterior cerebral artery is seen. IMPRESSION: 1. No acute intracranial hemorrhage, evidence of acute territorial infarction, or other acute intracranial disease process. 2. 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 Atherosclerotic disease is in the bilateral carotid bulbs with nonhemodynamically significant stenosis. 3. No occlusion, hemodynamically significant stenosis, aneurysm, dissection, or arteriovenous malformation in the major intracranial arteries. Assessment of stenosis of the internal carotid arteries is based on NASCET criteria. ACT 112: Negative or not required by law. Electronically signed by: Williams Marin M.D. 02/07/2023 4:16 PM Medications Administered Discontinued Medications Aspirin (Aspirin Chew 324 Mg) 324 mg PO NOW STA Stop: 02/07/23 16:23 Last Admin: 02/07/23 16:31 Dose: 324 mg Documented By: DYLON Sodium Chloride (Nss 1000ml) 500 mls @ 999 mls/hr IV .Q31M ONE Stop: 02/07/23 16:52 Last Admin: 02/07/23 16:33 Dose: 999 mls/hr Documented By: DYLON Ioversol (Ioversol 350 Mg 125ml Prefilled Syringe) 117 ml IV ONCE ONE Stop: 02/07/23 15:45 Last Admin: 02/07/23 15:44 Dose: 117 ml Documented By: ARLETH Supervising Physician Co-Signing Physician Notes Pt seen and examined by me, care coordinated w/ Gilmar Martinez PA-C, pls refer to her note above for further detail. Pt is a 57 y/o M with asthma/COPD, chronic back pain with sciatica, dyslipidemia, and tobacco use who presents with 2 weeks of intermittent numbness and tingling in the left arm and an episode of weakness in the arm today. He has also noted new headaches almost daily for the last two weeks, which he attributed to stress. He had an episode of dizziness with floaters in his vision about ten days ago when he was at work that lasted a few minutes before resolving. Patient reports some chronic shortness of breath due to COPD, some intermittent left-sided chest pain. He has troubles following up with physicians for multiple reasons. He was referred to hematology/oncology while ago due to B symptomsnight sweats going on for several years, elevated white blood cell count and thrombocytosis. Patient says that due to driving issues it is not easy for him to follow-up with physicians/referrals. Currently he is sitting up in bed in no acute distress. He is breathing comfortably on room air saturating 96%. 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 He is able to ambulate without difficulty. Lungs are clear to auscultation, heart sounds regular. Abdomen soft nontender nondistended. No lower extremity edema noted. Skin is warm and dry. CTA heda and neck obtained 1. No acute intracranial hemorrhage, evidence of acute territorial infarction, or other acute intracranial disease process. 2. 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 Atherosclerotic disease is in the bilateral carotid bulbs with nonhemodynamically significant stenosis. 3. No occlusion, hemodynamically significant stenosis, aneurysm, dissection, or arteriovenous malformation in the major intracranial arteries. We will obtain brain MRI. Patient received aspirin 324 mg in the ED, will continue with aspirin 81 mg daily. Patient is already on statin, will increase the dose. We will obtain lipid fasting panel tomorrow morning. Neurology consulted. Given his persistent leukocytosis and thrombocytosis, will also obtain peripheral blood smear. Consider hematology /oncology consultation inpatient versus outpatient. Outpatient referral previously made, however patient has problems following up with that. MD Carmen
[2023-02-07] MEDS ORDERED: PHARMACIST DISCHARGE MED REC CONSULT PRN (18:23)
[2023-02-07] MEDS ORDERED: ACETAMINOPHEN 325 MG TAB PO PRN (18:23)
--- NOTE | 2023-02-07 22:53 | Magnetic Resonance Report ---
Exam(s): MRI HEAD Without Contrast EXAM: MR Head Without Intravenous Contrast CLINICAL HISTORY: Reason for exam: TIA. TECHNIQUE: Magnetic resonance images of the head/brain without intravenous contrast in multiple planes. COMPARISON: CT head, CTA head 02/07/23 FINDINGS: Brain: Scattered foci of T2/FLAIR signal hyperintensity in the cerebral white matter in keeping with mild chronic small vessel ischemic disease. No diffusion restriction to suggest acute cerebral ischemia. No acute intracranial hemorrhage. No mass-effect or midline shift. Ventricles: Unremarkable. No ventriculomegaly. Bones/joints: Unremarkable. Sinuses: Unremarkable as visualized. No acute sinusitis. Mastoid air cells: Unremarkable as visualized. No mastoid effusion. Orbits: Unremarkable as visualized. Vertebral arteries: Abnormal left vertebral artery flow void at the C1 level (series 5, image 1). IMPRESSION: 1. No acute intracranial findings. 1. Abnormal left vertebral artery flow void at the C1 level. Multifocal left vertebral artery occlusion was demonstrated on CTA neck performed earlier today. Electronically signed by: Gen Sadler M.D. 02/07/23 22:52 PM
[2023-02-08] MEDS ORDERED: ASPIRIN 81 MG ECTAB PO SCH (09:00)
[2023-02-08] MEDS ORDERED: ENOXAPARIN INJ 40 MG/0.4 ML SYR SQ SCH (09:00)
--- NOTE | 2023-02-08 11:06 | Neurology Consultation ---
Date of Consultation February 08, 2023 History of Present Illness Reason for Consultation: Patient left AMA before he could be seen in neurological consultation. Attending Physician: Celestino Morales MD Allergies Allergy/AdvReac Type Severity Reaction Status Date / Time Mosquito Bite Allergy Mild Rash Uncoded 02/07/23 16:56 around site of bite Home Medications Medication Instructions Recorded Confirmed Type albuterol sulfate 90 mcg/actuation 2 inha inhalation QID PRN 10/22/20 02/07/23 History aerosol inhaler Wheezing/asthma atorvastatin 20 mg tablet 20 mg PO DAILY 02/07/23 02/07/23 History diphenhydramine HCl 25 mg tablet 25 mg PO Q8H PRN Allergy Symptoms 02/07/23 History (Benadryl Allergy) umeclidinium 62.5 mcg-vilanterol 1 ea inhalation QAM 02/07/23 02/07/23 History 25 mcg/actuation powdr for inhalation (Anoro Ellipta) Patient History Medical History (Updated 02/07/23 @ 19:19 by Sandy Martinez PA-C) Abnormal CT scan, chest Asthma Chronic coughing Dyslipidemia GERD (gastroesophageal reflux disease) Nephrolithiasis Sciatica Seasonal allergies Tobacco abuse Surgical History History of hernia surgery Family History (Updated 09/09/21 @ 13:48 by NIKOLE Montejo) Other Allergies Asthma Cancer Diabetes FHx: cancer FHx: heart disease Heart disease Denies family history of Lung disease Social History (Updated 02/07/23 @ 18:05 by Sandy Martinez PA-C) Smoking Status: Current every day smoker Tobacco Type: Cigarettes and Smokeless Tobacco (Dip or Chew) Age Started Using Tobacco: 13; packs per day: 1; Cigarettes Per Day: 8-10 cig/day (Previously smoked 1-2 pks/day); Hx Alcohol Use: No Hx Substance Use: No Preferred Language: Frisian Visual Impairment: No Limitations Hearing Ability: Normal current occupational status: employed Feels Safe at Home: Yes PG Care Time/CCT Total # of Minutes Spent Total Time Spent with Patient: Total time spent is greater than 50% in coordination of care (as documented) at patient's floor/unit and/or counseling patient: Coding Level of Care Code None Diagnoses
--- NOTE | 2023-02-08 14:53 | Electrocardiogram Report ---
Test Reason : Blood Pressure : / mmHG Vent. Rate : 086 BPM Atrial Rate : 086 BPM P-R Int : 134 ms QRS Dur : 084 ms QT Int : 354 ms P-R-T Axes : 061 -02 043 degrees QTc Int : 423 ms Normal sinus rhythm Normal ECG When compared with ECG of 22-OCT-2020 22:59, No significant change was found Confirmed by Foster Walker ([id number]) on 02/08/2023 2:52:43 PM Referred By: Lyric Mcarthur Confirmed By:Dayton Walker
--- NOTE | 2023-02-16 18:49 | Discharge Summary ---
Date of Service February 07, 2023 Admission HPI Per Admitting Provider This is a 57 y/o male with a history of asthma/COPD, chronic back pain with sciatica, dyslipidemia, and tobacco use who presented to the ED today with two weeks of intermittent numbness and tingling in the left arm and an episode of weakness in the arm today. Pt reports that two weeks ago, he started to have episodes during which his entire left arm would go numb. These last no more than a minute then resolve without specific intervention. They have been gradually increasing in frequency but not lasting longer. This afternoon, he started with a similar sensation but this time his entire left arm went weak and he was unable to move it reporting that he had to lift it with his other arm. Again, this lasted about a minute before improving without specific intervention. He denies prior similar symptoms in his UEs before two weeks ago. No inciting event or trauma. Pt is right-hand dominant. He works for a [employer] so is frequently lifting and using his arms. He does have a history of chronic back pain with sciatica, which is what he initially attributed his symptoms to. He is no longer taking the diclofenac and gabapentin previously prescribed to him as he didn't think they helped much. He has also noted new headaches almost daily for the last two weeks, which he attributed to stress. He had an episode of dizziness with floaters in his vision about ten days ago when he was at work that lasted a few minutes before resolving. He notes chronic issues with shortness of breath related to asthma/COPD - breathing is always worse during allergy season and when the weather is hot so he has been using his albuterol inhaler with relief. He has also noted occasional episodes of left chest pain that last a couple of minutes, did have this earlier today as well. Admission Exam Per Admitting Provider Constitutional: well developed and well nourished; no acute distress Eyes: PERRL, conjunctivae normal, anicteric sclerae ENMT: external ear and nose normal, oropharynx normal Neck: trachea midline Respiratory: no respiratory distress and no labored breathing Auscultation: lungs clear to auscultation bilaterally; no rales, no rhonchi and no wheezes Cardiovascular: Rate/Rhythm: regular rate and regular rhythm Vessels: posterior tibial pulses present and radial pulses present Extremities: no pedal edema Gastrointestinal (Abdomen): Inspection/Auscultation: normal bowel sounds; abdomen not distended Percussion/Palpation: abdomen soft; abdomen nontender Musculoskeletal: Head/Neck/Chest: normocephalic, head atraumatic and neck supple Skin: no jaundice Neurologic: moves all extremities; not confused Speech / Cognition: normal speech Motor/Sensory: no pronator drift Cranial Nerves: PERRL, normal facial strength, tongue midline, able to rotate head bilaterally and able to elevate shoulders bilaterally 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 otherwise strength in UE and LE equal and full bilaterally Psychiatric: A+Ox3, euthymic affect Principal Diagnosis left arm weakness/ numbness - possible TIA Discharge Exam Pt left AMA Discharge Data Allergies Allergy/AdvReac Type Severity Reaction Status Date / Time Mosquito Bite Allergy Mild Rash Uncoded 02/07/23 16:56 around site of bite Consultations 02/07/23 16:58 ED Decision to Admit Stat 02/07/23 18:23 Consult Neurology Routine Ordered Studies 02/07/23 14:57 CT angio head wo/w Stat 02/07/23 14:58 CT angio neck with con Stat CT head: There is no acute intracranial hemorrhage or evidence of acute territorial infarction. No shift of the midline structures, mass effect, or extra-axial abnormalities are shown. Small thyroid nodules are seen which do not require follow-up by ACR criteria. CTA Neck: A 3 vessel aortic arch is shown. There is no significant atherosclerotic plaque in the aortic arch or the origins of the innominate, left common carotid, and left subclavian arteries. There is mild calcified atherosclerotic plaque at the bifurcation of the bilateral common carotid nathaly lee without hemodynamically significant flow stenosis. There is no dissection present. 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 The right vertebral artery is dominant. CTA Head: The anterior and posterior cerebral circulations are patent. origin of the left posterior cerebral artery is seen. IMPRESSION: 1. No acute intracranial hemorrhage, evidence of acute territorial infarction, or other acute intracranial disease process. 2. 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 Atherosclerotic disease is in the bilateral carotid bulbs with nonhemodynamically significant stenosis. 3. No occlusion, hemodynamically significant stenosis, aneurysm, dissection, or arteriovenous malformation in the major intracranial arteries. Assessment of stenosis of the internal carotid arteries is based on NASCET criteria. 02/07/23 18:23 MRI Brain [MR brain wo con] Routine FINDINGS: Brain: Scattered foci of T2/FLAIR signal hyperintensity in the cerebral white matter in keeping with mild chronic small vessel ischemic disease. No diffusion restriction to suggest acute cerebral ischemia. No acute intracranial hemorrhage. No mass-effect or midline shift. Ventricles: Unremarkable. No ventriculomegaly. Bones/joints: Unremarkable. Sinuses: Unremarkable as visualized. No acute sinusitis. Mastoid air cells: Unremarkable as visualized. No mastoid effusion. Orbits: Unremarkable as visualized. Vertebral arteries: Abnormal left vertebral artery flow void at the C1 level (series 5, image 1). IMPRESSION: 1. No acute intracranial findings. 1. Abnormal left vertebral artery flow void at the C1 level. Multifocal left vertebral artery occlusion was demonstrated on CTA neck performed earlier today. Hospital Course (1) Arm weakness: This is a 57 y/o male with a history of asthma/COPD, chronic back pain with sciatica, dyslipidemia, and tobacco use who presented to the ED today with two weeks of intermittent numbness and tingling in the left arm and an episode of weakness in the arm today.These episodes of symptoms have been progressing in frequency and today in severity. Initial work-up in the ED revealed atherosclerosis in the carotid bulbs with non-hemodynamically significant stenosis as well as multiple foci of total occlusion of the left vertebral artery but no acute CVA. Continues to have intermittent numbness in the LUE since being in the ED but no further weakness. Pt with multiple risk factors for CVA so referred for admission. Concern that these LUE symptoms are TIA. - Observe in PCU with neuro checks, daily stroke scale - start ASA, increase statin - Check MRI brain - ECHO for evaluation - Consult neurology for additional recommendations - If work-up listed negative, consider evaluation for cervical radiculopathy, potentially as outpatient - Lipid panel and A1c in the AM - Encouraged to stop smoking completely (2) Leukocytosis: Ongoing issue - associated mild thrombocytosis. Pt was referred to hem/onc for additional evaluation outpatient but reports that he was unable to make appointment because of transportation issues. Will check peripheral smear. Consider inpt heme/onc eval vs. outpatient referral depending on results. Peripheral smear - Pathology review This peripheral smear for review reveals normochromic/normocytic red blood cells, unremarkable platelets, unremarkable PMN leukocytes, rare large granular lymphocytes, unremarkable lymphocytes and unremarkable monocytes. Blasts and schistocytes are not seen. As well, the PMN leukocytes fail to reveal the signs of sepsis. Immature myeloid cells are not present. As well, there is no cytologic evidence of myelodysplasia. Review of the patient's CBC confirms the presence of a leukocytosis with a white blood cell count at 18.07 x 10 to the ninth per liter, an unremarkable hemoglobin concentration at 15.6 g/dL and very mild thrombocytosis with a platelet count of 420 x 10 to the ninth per liter. The patient does not have an absolute lymphocytosis. Review of the electronic medical record indicates this patient presented recently to the emergency department complaining of left arm weakness. The patient left AGAINST MEDICAL ADVICE prior to a neurology consultation. The etiology of this patient's leukocytosis and very mild thrombocytosis is left to clinical correlation and further evaluation. According to the electronic medical record, the patient was referred for a hematology consult but did not attend a hematology consult. Peripheral smear for review: #1. Normochromic/normocytic red blood cells, unremarkable leukocytes, rare large granular lymphocytes, and unremarkable platelets are all seen. #2. Blasts and schistocytes are not seen. #3. The signs of sepsis are not seen and there is no evidence of myelodysplasia. #4. The etiology of this patient's leukocytosis and mild thrombocytosis is left to clinical evaluation and further workup.#5. Please see above discussion. Venkata Rogers MD. (3) Tobacco abuse: (4) Dyslipidemia: (5) Asthma: Continue inhalers Plan Continue other home medications as appropriate. Unfortunately, pt was not evaluated by neurology as pt left the same evening (02/07/23) AMA. Total Time Total Time Spent Total Time Spent (In Minutes): 0 Discharge Plan Discharge Items Patient Disposition: Against Medical Advice Reason For Visit: TIA Condition on Discharge: Good Activity: Per Instructions section Follow-up/Referrals: Lyric Mcarthur PA-C [Primary Care Provider] - Stand-Alone Forms: [facility] [employer], Smoking Cessation Medications and DC Order Prescriptions: No Action albuterol sulfate 90 mcg/actuation HFA aerosol inhaler 2 inha INH QID PRN (Reason: Wheezing/asthma) diphenhydramine HCl [Benadryl Allergy] 25 mg Tablet 25 mg PO Q8H PRN (Reason: Allergy Symptoms) Anoro Ellipta 62.5-25 mcg/actuation blister with device 1 ea INHALATION QAM atorvastatin 20 mg tablet 20 mg PO DAILY Admission Data Admit Date/Time: 02/07/23 17:02 Attending Provider: Celestino Morales Admit Provider: Celestino Morales Primary Care Provider: Lyric Mcarthur Other Providers: Celestino Morales ; Josef Fleming
== END 2023-02-07 23:52 | disposition left against medical advice (07) ==
LOC: ED 14:08 → EDINP 14:08
DX: E78.5 Hyperlipidemia, unspecified; R53.1 Weakness; D72.829 Elevated white blood cell count, unspecified; F17.210 Nicotine dependence, cigarettes, uncomplicated; Z79.899 Other long term (current) drug therapy; J45.909 Unspecified asthma, uncomplicated